=== PATIENT | female | born 1950 | race Caucasian/White ===

== ENCOUNTER 2016-04-16 03:23 | Inpatient (IN) | payer OTHER ==
[2016-04-11 09:57] LABS: HEMATOCRIT 38.9 % (37.0-47.0); HEMOGLOBIN 12.9 g/dL (12.0-16.0); MCH 29.3 PG (27-31); MCHC 33.2 g/dL (33-37); MCV 88.4 FL (81-99); MPV 9.1 FL (7.4-10.4); RBC 4.4 XMIL (4.2-5.4)
--- NOTE | 2016-04-11 10:17 | EKG Report ---
Test Performed on : 04/11/2016 09:35:31 AM Test Reason : PAT Blood Pressure : / mmHG Vent. Rate : 081 BPM Atrial Rate : 081 BPM P-R Int : 122 ms QRS Dur : 084 ms QT Int : 378 ms P-R-T Axes : 057 050 058 degrees QTc Int : 439 ms Normal sinus rhythm. Normal ECG When compared with ECG of 24-SEP-2014 20:58, premature ventricular complexes. are no longer present Confirmed by Lee Retana MD ([id number]) on 04/13/2016 9:32:32 PM
[2016-04-11 10:42] LABS: AGAP 12; BUN 15 mg/dL (8-22); CALCIUM 8.9 mg/dL (8.8-10.2); CHLORIDE 102 mmol/L (98-107); COSMO 281; POTASSIUM 4.7 mmol/L (3.5-5.1); SODIUM 140 mmol/L (136-145); TCO2 26 mmol/L (25-35)
[2016-04-16] MEDS ORDERED: INVANZ 1 GM/NS 50 ML ONE (05:33)
[2016-04-16] MEDS ORDERED: ENTEREG ONE (05:33)
[2016-04-16] MEDS ORDERED: LR 1,000 ML ONE (05:33)
[2016-04-16] MEDS ORDERED: MARCAINE 0.25% PF ONE (06:46)
[2016-04-16] MEDS ORDERED: EXPAREL 1.3% ONE (06:46)
[2016-04-16] MEDS ORDERED: SODIUM CHLORIDE 0.9% 10 ML ONE (06:46)
[2016-04-16 08:11] LABS: URINE MICRO REVIEW NEEDED? NO; URINE SOURCE CATH
[2016-04-16 08:15] LABS: BILIRUBIN URINE NEGATIVE (NEGATIVE); BLOOD URINE NEGATIVE (NEGATIVE); COLOR YELLOW; GLUCOSE URINE NEGATIVE (NEGATIVE); LEUKOCYTES URINE NEGATIVE (NEGATIVE); NITRITE URINE NEGATIVE (NEGATIVE); PROTEIN URINE NEGATIVE (NEGATIVE); SP GRAVITY URINE 1.014; TURBIDITY URINE CLEAR (CLEAR); UROBILINOGEN URINE NORMAL (NORMAL)
[2016-04-16 08:16] LABS: UR EPITHELIAL CELLS <10 /HPF (<10); URINE BACTERIA NEGATIVE /HPF; URINE RBC 20-40 /HPF (<10); URINE WBC <10 /HPF (<10)
[2016-04-16] MEDS ORDERED: FENTANYL ONE (09:49)
[2016-04-16] MEDS ORDERED: DIPRIVAN 1% ONE (09:50)
[2016-04-16] MEDS ORDERED: MORPHINE PCA ONE (09:52)
[2016-04-16] MEDS ORDERED: D5 1/2 NS + KCL 20 MEQ 1,000 ML ONE (09:55)
[2016-04-16] MEDS: PHENERGAN ONE ×2 (09:55→10:06)
[2016-04-16] MEDS ORDERED: EXTENSION SET 32 IN 4522 ONE (10:15)
[2016-04-16] MEDS ORDERED: LR 2,000 ML ONE (10:15)
[2016-04-16] MEDS ORDERED: NORCURON ONE (10:15)
[2016-04-16] MEDS ORDERED: QUELICIN (DOSE) ONE (10:15)
[2016-04-16] MEDS ORDERED: ROBINUL ONE (10:15)
[2016-04-16] MEDS ORDERED: DECADRON ONE (10:15)
[2016-04-16] MEDS ORDERED: NEOSTIGMINE ONE (10:15)
[2016-04-16] MEDS ORDERED: OFIRMEV 1000 MG/ISOTONIC SOLN 100 ML ONE (10:15)
[2016-04-16] MEDS ORDERED: ZOFRAN ONE (10:15)
[2016-04-16] MEDS ORDERED: XYLOCAINE-MPF 2% ONE (10:15)
--- NOTE | 2016-04-16 10:35 | OPERATIVE NOTE ---
PROCEDURE DATE: 04/16/2016 PREOPERATIVE DIAGNOSIS: Rectal cancer. POSTOPERATIVE DIAGNOSIS: Rectal cancer. PRINCIPAL PROCEDURE: Low anterior colon resection with takedown of the splenic flexure. SURGEON: Diamond Daniels MD NUTRITION SERVICES ASSOCIATE: Familia Lee RN. ANESTHESIA: General. She underwent an abdominal block prior to surgery per anesthesia. ESTIMATED BLOOD LOSS: 100 mL. DRAINS: None. INDICATIONS: Ms. Virginia Lane is a 66-year-old white female who is sent to me by her rf technician Dr. Tovar after undergoing colonoscopy for rectal bleeding. A tumor at the rectosigmoid junction was identified and she was sent to us for resection. CT scan of the abdomen and pelvis prior to surgery suggested no metastatic disease. FINDINGS: This tumor was at the peritoneal resection. It was in the proximal rectum and not the sigmoid colon. We had to go in the extraperitoneal space to get a distal margin and we felt we did a thorough dissection of the mesorectum. We placed the descending colon end to end to the mid rectum. We did take down the splenic flexure. We did this through a lower midline incision. No other intra-abdominal pathology was noted. There was no evidence of metastatic disease intra- abdominally. This was a bulky tumor. We preserved her uterus and both ovaries. The ovaries were atrophic without evidence of metastatic disease. DESCRIPTION OF PROCEDURE: The day prior to surgery she underwent a bowel prep at home which included oral antibiotics. She presented on the day of surgery. It must be noted that we could not remove her ring preoperatively from 1 of her left fingers and we decided to proceed with surgery. She was placed on the Entereg protocol. She received IV Invanz prior to surgery. She was taken to surgery, received general anesthesia, was intubated. Then an abdominal block was performed by anesthesia. She was placed in stirrups. Craven catheter tube was placed. We did not use an NG tube. We used an Ioban on the skin and a wound protector for retraction within our midline wound. We made a lower midline incision with a 10 blade scalpel. This incision was carried down through the skin, subcutaneous tissue, and the midline fascia using the cautery and we entered the abdomen. We explored the abdomen with findings above. We then identified the mass. This was a bulky tumor at the peritoneal reflection the proximal rectum. We began the procedure by lifting up the distal sigmoid and making an incision along the mesentery right along its base at the sacral promontory both proximally and distally. Proximally we identified the inferior mesenteric vessels at their origin and we did divided them between Bridget clamps. We suture ligated them proximally with a 2-0 suture ligature. We then transected the mesentery up to the distal descending colon where we used a pursestring instrument to come across the colon. We divided it using Lemos scissors. We placed a Brina on the rectal side of our specimen and the pursestring was on the proximal descending colon side. We sized the descending colon. We felt we could use the largest EEA stapler. We used a 31 mm. We placed the anvil into our descending colon and tied the pursestring around it. We took some time to clean any fat overlying our anvil. Once we were happy with the anvil in the descending colon, we directed our attention to resecting our specimen which was the sigmoid colon in the proximal rectum. We incised the peritoneum along the lateral aspect of the sigmoid and descending colon. We had already incised it medially and posteriorly using the cautery. We got posteriorly along the sacrum and got below this bulky proximal rectal tumor. Care was taken to remove the mesocolon posteriorly and on both sides. We used the cautery for this and were able to control bleeding. We did not have to use the LigaSure. We chose a spot in the mid rectum with plenty a distal margin from this proximal rectal tumor. We came across the mid rectum with a 45 mm in length blue load TIA and then a scalpel was used to transect our rectum and the specimen was removed from the field. We placed two 3-0 silk stitches on either side of our staple line of the rectum and we used a right angle and cautery to clean off along the staple line of our rectum. We had to use the cautery to transect the peritoneum along the descending colon, and even the splenic flexure so that we had no tension on our descending colon as it fell down into the pelvis to the rectum. I then went below to the anus and Familia Lee RN was above, and I used sequential dilators into the rectum up to our stapled rectal stump and then I placed the EEA stapler. At this point, Familia Lee and I switched. I went back up to the abdomen and he came down to hold the EEA stapler that I had placed into the rectum. I had him bring out the spike when I was happy with the EEA stapler's position and I mated the anvil to the EEA stapler, and under my vision Familia Lee brought the anvil down to the EEA stapler. I then had to switch back down below so that I could fire the EEA stapler. The EEA stapler was fired by myself and there were 2 complete donuts proximally and distally, and I removed the EEA stapler from the rectum. I then used the rigid proctoscope and placed it into our rectal stump and blew air past our anastomosis while Familia was at the abdomen with warm saline in the pelvis and there was no leak of bubbles through our anastomosis. I sucked out all the remaining air and liquid stool from the rectal stump and then everyone changed gloves and I changed gowns and went back to the abdomen. I placed 2 stay stitches on either side of our stapled anastomosis. These were 3-0 silk stitches. I was happy with our anastomosis. There was no tension on it. I thought the blood supply was excellent and we used a 31 mm stapler. I felt I had plenty of distal margin on our specimen. We took time to thoroughly irrigate out the pelvis with warm saline. There was no evidence of ongoing bleeding. I left no drain. I placed the uterus back down over our anastomosis and made sure that the fallopian tubes and what was left of the ovaries were up out of the deep pelvis. I placed the cecum down in that area and then I placed the small bowel back in its anatomically correct position with the greater omentum overlying the bowel. I reapproximated the peritoneum with a running 0 Vicryl stitch and then I closed the midline fascia. This was a lower midline incision using a running #1 Maxon stitch. Again, we irrigated out the incision with warm saline and I closed the skin with a skin clip outdoor fitness trainer. Dressings were applied. Her Craven catheter tube remains. She does not have an NG tube. She will go to the recovery room and we will plan to send her to a room on the floor. She tolerated the procedure well.
[2016-04-16] MEDS ORDERED: ZOFRAN IV PRN ×2 (11:04→11:12)
[2016-04-16] MEDS ORDERED: NARCAN IV PRN (11:12)
[2016-04-16] MEDS ORDERED: SODIUM CHLORIDE 0.9% INJ PRN (11:12)
[2016-04-16] MEDS ORDERED: MORPHINE PCA IV PRN (11:12)
[2016-04-16] MEDS ORDERED: BENADRYL IV PRN (11:12)
[2016-04-16] MEDS ORDERED: PHENERGAN IV PRN (11:12)
[2016-04-16] MEDS: TORADOL IV SCH ×3 (12:19→22:17)
[2016-04-16] MEDS: D5 1/2 NS + KCL 20 MEQ 1,000 ML IV SCH ×2 (12:19→22:32)
[2016-04-16] MEDS: OFIRMEV 1000 MG/ISOTONIC SOLN 100 ML IV SCH ×2 (14:20→22:17)
[2016-04-16] MEDS: PERIDEX MT SCH (22:17)
[2016-04-16] MEDS: LOVENOX SUBQ SCH (22:17)
[2016-04-16] MEDS: CYMBALTA PO SCH (22:17)
[2016-04-17] MEDS: D5 1/2 NS + KCL 20 MEQ 1,000 ML IV SCH ×4 (00:53→22:12)
[2016-04-17] MEDS: OFIRMEV 1000 MG/ISOTONIC SOLN 100 ML IV SCH ×4 (03:21→22:13)
[2016-04-17] MEDS: TORADOL IV SCH (04:58)
[2016-04-17] MEDS: WELLBUTRIN XL PO SCH (09:21)
[2016-04-17] MEDS: CYMBALTA PO SCH ×3 (09:21→22:12)
[2016-04-17] MEDS: ENTEREG PO SCH ×2 (09:21→22:12)
[2016-04-17] MEDS: PERIDEX MT SCH ×2 (09:21→22:12)
[2016-04-17] MEDS ORDERED: PNEUMOVAX 23 IM ONE (10:15)
--- NOTE | 2016-04-17 18:20 | PROGRESS NOTE ---
DATE: 04/17/2016 Virginia Arteaga is now postop day 1 from a low anterior colon resection for rectal cancer. She looks good today. Her heart rate is 63, blood pressure 117/52, O2 saturation 98% on 2 L nasal cannula O2. She still has a Craven catheter tube in place. Her urine output has been good. She is afebrile on no antibiotics. We will discontinue her intermittent compression hose because she is on Lovenox. We will discontinue her Craven catheter tube first thing tomorrow morning. We will increase her activity. We will keep her NPO and continue IV fluids.
[2016-04-17] MEDS: LOVENOX SUBQ SCH (22:13)
[2016-04-18] MEDS: OFIRMEV 1000 MG/ISOTONIC SOLN 100 ML IV SCH ×4 (03:14→20:07)
[2016-04-18] MEDS: D5 1/2 NS + KCL 20 MEQ 1,000 ML IV SCH ×2 (09:08→15:15)
[2016-04-18] MEDS: PERIDEX MT SCH ×2 (09:43→20:07)
[2016-04-18] MEDS: CYMBALTA PO SCH ×3 (09:44→20:07)
[2016-04-18] MEDS: WELLBUTRIN XL PO SCH (09:44)
[2016-04-18] MEDS: ENTEREG PO SCH ×2 (09:44→20:07)
--- NOTE | 2016-04-18 16:16 | PROGRESS NOTE ---
DATE: 04/18/2016 SUBJECTIVE: Ms. Virginia Arteaga is now postoperative day 2 from a low anterior colon resection for a rectal cancer. So far we feel her postoperative convalescence has been normal. We removed her Craven catheter tube this morning and she has been up and able to void. OBJECTIVE: Her heart rate is 77. Blood pressure 124/51. O2 saturation 100%. She has good urine output. Her lower midline incision is dressed. She is afebrile on no antibiotics. PLAN: We will continue increasing her activity. We will keep her n.p.o. for now. As she has more bowel activity we will start her on clear liquids. Overall, I think she is doing well.
[2016-04-18] MEDS: LOVENOX SUBQ SCH (20:07)
[2016-04-19] MEDS: D5 1/2 NS + KCL 20 MEQ 1,000 ML IV SCH (00:44)
[2016-04-19] MEDS: OFIRMEV 1000 MG/ISOTONIC SOLN 100 ML IV SCH (02:26)
[2016-04-19] MEDS ORDERED: TYLENOL PO PRN (08:13)
[2016-04-19] MEDS ORDERED: D5 1/2 NS + KCL 20 MEQ 1,000 ML IV SCH (08:13)
[2016-04-19] MEDS ORDERED: NORCO-7.5 PO PRN (08:14)
[2016-04-19] MEDS: PERIDEX MT SCH ×3 (09:11→23:46)
[2016-04-19] MEDS: CYMBALTA PO SCH ×4 (09:12→23:46)
[2016-04-19] MEDS: WELLBUTRIN XL PO SCH (09:20)
--- NOTE | 2016-04-19 09:35 | PROGRESS NOTE ---
DATE: 04/19/2016 SUBJECTIVE: Ms. Arteaga is now postop day 3 from a low anterior colon resection for rectal cancer. We feel that her postoperative convalescence has been normal. This morning, she looks well and is sitting up in a chair. OBJECTIVE: Her heart rate is 69, blood pressure 123/50, O2 saturation is 97%. She has no work of breathing. She is voiding without a Craven. She is afebrile, on no antibiotics. IMPRESSION AND PLAN: She states that she has had some flatus. Her abdomen remains mostly soft and we will start clear liquids. We will change intravenous medications to oral.
[2016-04-19] MEDS ORDERED: ZOFRAN IV PRN (18:11)
[2016-04-19] MEDS: LOVENOX SUBQ SCH ×2 (19:35→23:46)
[2016-04-20] MEDS: PERIDEX MT SCH (09:58)
[2016-04-20] MEDS: CYMBALTA PO SCH ×2 (09:59)
[2016-04-20] MEDS: WELLBUTRIN XL PO SCH (09:59)
[2016-04-20 11:48] VITALS: BP 129/44
--- NOTE | 2016-04-26 17:48 | DISCHARGE SUMMARY ---
ADMISSION DATE: 04/16/2016 DISCHARGE DATE: 04/20/2016 ADMITTING DIAGNOSIS: Rectal cancer. DISCHARGE DIAGNOSIS: Rectal cancer. PRINCIPAL PROCEDURE: Open low anterior colon resection on 04/16/2016. DISCHARGE DISABILITY: Full. DISCHARGE DISPOSITION: She will return to our outpatient offices in approximately a week for followup. DISCHARGE DIET: Regular. DISCHARGE MEDICATIONS: She is to return to her home medications. HOSPITAL COURSE: Ms. Virginia Arteaga is a 66-year-old white female who was diagnosed with having rectal cancer at the rectosigmoid junction. She was seen in our outpatient office. We discussed treatment options and decided on resection. She underwent a bowel prep at home and presented on the day of surgery for her low anterior colon resection. She was taken to the operating room where she was placed in [facility] surprise. Craven catheter tube was placed. We did not use an NG tube. We performed an open low anterior colon resection with end-to-end stapled anastomosis. We felt that the operation went well and after surgery she went to the recovery room and then to the [address] [place] [address] [facility] where we felt that her postoperative convalescence was normal. At discharge her lower midline incision was healing well without evidence of infection. She was ambulating in the halls. She was able to void without problems. She was tolerating a diet. Her heart rate was 77, blood pressure 129/44, O2 saturation was 100%. She had no work of breathing. She was afebrile, on no antibiotics. Plans are to discharge her home under the care of her with followup in our outpatient office. She knows to contact me with any problems such as increasing abdominal pain or fever. We will discuss her pathology report when she returns to the office.
== END 2016-04-20 12:14 | disposition home or self-care (01) | DRG 331 ==
LOC: SURHOLD 03:23 → 4N 10:21
PROVIDERS: ADMIT Surgery; ATTEND Surgery
PROC: 0DTN0ZZ Resection of Sigmoid Colon, Open Approach (ICD-10-PCS; principal; 2016-04-16 07:08)
DX: C19 Malignant neoplasm of rectosigmoid junction (principal); F32.9 Major depressive disorder, single episode, unspecified; N83.312 Acquired atrophy of left ovary; N83.311 Acquired atrophy of right ovary; F41.9 Anxiety disorder, unspecified; Z79.899 Other long term (current) drug therapy; Z87.891 Personal history of nicotine dependence
CPT/HCPCS: 80048; 81001; 85027; 86850; 86900; 86901; 88309; 93005; 93010; 94761; 94799; C9290; J0131; J0330; J1100; J1335; J1650; J1885; J2270; J2405; J2550; J3010; J3480; J7120; J2710; S0020